=== PATIENT | female | born 1985 | race African-American/Black ===

== ENCOUNTER 2020-01-08 16:28 | Emergency (ER) | payer MEDICAID ==
[2020-01-08 16:54] VITALS: BP 128/79
--- NOTE | 2020-01-08 17:54 | ER Document Report ---
ED General - General Chief Complaint: Medical Complaint Stated Complaint: POSSIBLE MOLD EXPOSURE Time Seen by Provider: 01/08/20 17:18 Mode of Arrival: Ambulatory Information source: Patient Notes: Patient is a 34-year-old female comes emergency room accompanied by her 4 children. Mother states that she has been exposed to black mold in her house here in [place]. She states that she moved in here in August and started having symptoms as did her children in September and early October. It was soon discovered by health department that this was black mold and mother is in the fight of trying to get her money back and then to move into another place. She states that she has had some increase in her asthma symptoms as well as headaches and some nausea. 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 She does not smoke drink or do drugs. Besides the asthma she denies any other medical problems. Patient states that she has been forced to move back to [place] until such time as she can find and locate a new apartment here in town. She also states that she has solicited the help of a jewel bearing turner and trying to get her money back. And he is wondering if suggested that she see the ismael wilkins if not to bring him to ER for evaluation. TRAVEL OUTSIDE OF THE [place] IN LAST 30 DAYS: No - HPI Onset: Other - Approximately 4 months Onset/Duration: Gradual, Persistent, Worse Pain Level: 2 Associated symptoms: Body/muscle aches, Nonproductive cough, Weakness, Other - Wheezing and headache Exacerbated by: Denies Relieved by: Denies Similar symptoms previously: Yes Recently seen / treated by doctor: No - Related Data Allergies/Adverse Reactions: No Known Allergies Allergy (Unverified 01/08/20 17:29) Past Medical History - General Information source: Patient - Social History Smoking Status: Never Smoker Chew tobacco use (# tins/day): No Frequency of alcohol use: None Drug Abuse: None Lives with: Family Family History: Reviewed & Not Pertinent Pulmonary Medical History: Reports: Hx Asthma Neurological Medical History: Reports: Hx Migraine Review of Systems - Review of Systems Constitutional: No symptoms reported EENT: Nose congestion Cardiovascular: No symptoms reported Respiratory: See HPI, Cough, Wheezing Gastrointestinal: No symptoms reported Genitourinary: No symptoms reported Female Genitourinary: No symptoms reported Musculoskeletal: No symptoms reported Skin: No symptoms reported Hematologic/Lymphatic: No symptoms reported Neurological/Psychological: Headaches -: Yes All other systems reviewed and negative Physical Exam - Vital signs Vitals: Temp Pulse Resp BP Pulse Ox 98.7 F 104 H 20 128/79 H 94 01/08/20 16:44 01/08/20 16:44 01/08/20 16:44 01/08/20 16:44 01/08/20 16:44 Interpretation: Tachycardic, Hypoxic - Notes Notes: PHYSICAL EXAMINATION: GENERAL: Patient is a well-nourished well-developed obese 34-year-old female was in no apparent distress on physical exam today. HEAD: Atraumatic, normocephalic. EYES: Pupils equal round and reactive to light, extraocular movements intact, conjunctiva are normal. ENT: Examination and upper airway show nasal mucosa be mildly erythematous edematous with some rhinorrhea noted. No frontal max or sinus tenderness. Bilateral TMs normal appearance. Posterior pharynx shows mild erythema with mild drainage in the posterior pharynx. Uvula is midline with no erythema airways patent. NECK: Normal range of motion, supple without lymphadenopathy LUNGS: Auscultation patient's lungs shows bilateral breath sounds breath sounds decreased throughout faint expiratory wheeze noted on right side. No rhonchi or rales heard. HEART: Tachycardic rate without murmurs ABDOMEN: Soft, nontender, nondistended abdomen. No guarding, no rebound. No masses appreciated. Female : deferred Musculoskeletal: Normal range of motion, no pitting or edema. No cyanosis. NEUROLOGICAL: Normal speech, normal gait. Normal sensory, motor exams PSYCH: Normal mood, normal affect. SKIN: Warm, Dry, normal turgor, no rashes or lesions noted. Course - Re-evaluation Re-evalutation: 01/08/20 17:54 The other provider myself to talk to the family about needing to get out of the situation with the exposed to the black mold. The deal with the symptoms are go away is by desensitizing himself to the mole itself. At this point patient states that she is taken her kids back to [place] and then find another facility close by here in [place] without that problem. - Vital Signs Vital signs: Temp Pulse Resp BP Pulse Ox 98.7 F 104 H 20 128/79 H 94 01/08/20 17:24 01/08/20 16:44 01/08/20 16:44 01/08/20 16:44 01/08/20 16:44 Discharge - Discharge Clinical Impression: Mold suspected exposure Condition: Stable Disposition: HOME, SELF-CARE Instructions: Bronchitis With Bronchospasm (Wheezing) ([facility]), Upper Respiratory Illness ([facility]) Additional Instructions: As we discussed the only way to get an improvement on the symptoms is to get out of the area where you are exposed to the mall. If it means going back to [place] that we highly suggest you do so into you can find a safe place to bring her children back to here in [place]. There is no way I can are present tell you that black mold is causing all of the symptoms however that is very suspicious for that. You must continue to do your nebulizer treatment at least every 6 hours while awake. You need to establish with a physician here locally in [facility]. I will give you the name of the clinic that is seeing patients you may contact her office to see if they can accommodate you. Should you have any other concerns or problems he knows return to ER for reevaluation. Prescriptions: Albuterol Sulfate [Proventil 0.5% Neb 2.5 mg/0.5 ml Vial.neb] 2.5 mg NEB Q6 #30 vial.neb Forms: Elevated Blood Pressure, Return to Work Referrals: [facility] [Provider Group] - Follow up as needed
== END 2020-01-08 18:07 | disposition home or self-care (01) ==
LOC: ER 16:28
DX: Z77.120 Contact with and (suspected) exposure to mold (toxic) (principal); R51 Headache; R11.0 Nausea; M79.10 Myalgia, unspecified site; R05 Cough; R53.1 Weakness; J45.909 Unspecified asthma, uncomplicated; J34.89 Other specified disorders of nose and nasal sinuses; R00.0 Tachycardia, unspecified
CPT/HCPCS: 99282

== ENCOUNTER 2020-01-25 12:45 | Emergency (ER) | payer MEDICAID ==
[2020-01-25] MEDS ORDERED: NORMAL SALINE 1000 ML 1,000 ML IV ONE (13:32)
[2020-01-25] MEDS ORDERED: PROMETHAZINE HCL 25 MG TABLET PO ONE (13:33)
[2020-01-25] MEDS ORDERED: ACETAMINOPHEN 325 MG TABLET PO ONE (13:34)
--- NOTE | 2020-01-25 13:34 | ER Document Report ---
ED GI/ - General Chief Complaint: Headache Stated Complaint: SHORT OF BREATH,HEADACHE, Time Seen by Provider: 01/25/20 13:01 Primary Care Provider: [facility] [Provider Group] - Follow up as needed Mode of Arrival: Ambulatory Information source: Patient Notes: Patient presents complaining of vaginal discharge for the past week with lower abdominal pain off and on. Patient states that the pain migrates from the left to the right lower quadrant and occasionally to the epigastric area. Patient states pain right now is to the right lower quadrant. Patient reports nausea denies any vomiting or diarrhea. Patient denies any urinary symptoms. TRAVEL OUTSIDE OF THE [place] IN LAST 30 DAYS: No - HPI Patient complains to provider of: Abdominal pain. No: Vomiting Onset: Last week Timing/Duration: Waxing and waning Quality of pain: Sharp Pain Level: 3 Location: RLQ Vaginal bleeding (Compared to normal period): None Sexual history: Active Associated symptoms: Nausea, Vaginal discharge. denies: Fever, Urinary hesitancy, Urinary frequency, Urinary retention, Urinary urgency, Vomiting Exacerbated by: Denies Relieved by: Denies Similar symptoms previously: No Recently seen / treated by doctor: No - Related Data Allergies/Adverse Reactions: ibuprofen [From Advil] Allergy (Verified 01/25/20 15:58) iodine Allergy (Verified 01/25/20 16:05) Past Medical History - General Information source: Patient - Social History Smoking Status: Never Smoker Frequency of alcohol use: None Drug Abuse: None Occupation: none Lives with: Family Family History: Reviewed & Not Pertinent Pulmonary Medical History: Reports: Hx Asthma Neurological Medical History: Reports: Hx Migraine GI Medical History: Reports: Hx Gastroesophageal Reflux Disease Surgical Hx: Negative Review of Systems - Review of Systems Constitutional: No symptoms reported. denies: Fever EENT: No symptoms reported Cardiovascular: No symptoms reported. denies: Chest pain Respiratory: No symptoms reported. denies: Cough, Short of breath Gastrointestinal: Abdominal pain, Nausea. denies: Diarrhea, Vomiting Genitourinary: No symptoms reported. denies: Dysuria, Flank pain Female Genitourinary: No symptoms reported Musculoskeletal: No symptoms reported. denies: Back pain Skin: No symptoms reported Hematologic/Lymphatic: No symptoms reported Neurological/Psychological: No symptoms reported Physical Exam - Vital signs Vitals: Temp 99 F 01/25/20 13:30 - General General appearance: Appears well, Alert In distress: None - HEENT Head: Normocephalic, Atraumatic Eyes: Normal Conjunctiva: Normal Nasal: Normal Mouth/Lips: Normal Mucous membranes: Normal Neck: Normal, Supple. No: Lymphadenopathy - Respiratory Respiratory status: No respiratory distress Chest status: Nontender Breath sounds: Normal. No: Rales, Rhonchi, Stridor, Wheezing Chest palpation: Normal - Cardiovascular Rhythm: Regular Heart sounds: S1 appreciated, S2 appreciated Murmur: No - Abdominal Inspection: Morbidly Obese Distension: No distension Bowel sounds: Normal Tenderness: Tender - RLQ Organomegaly: No organomegaly - Genitourinary External exam: Normal Speculum exam: Cervix closed, Vaginal discharge Vaginal bleeding: None Bimanuel exam: Normal. No: Cervical motion tender, Adnexal mass, Adnexal tenderness Notes: WILLIAM Dumas as standby - Back Back: Normal, Nontender. No: CVA tenderness - Extremities General upper extremity: Normal inspection, Nontender, Normal ROM General lower extremity: Normal inspection, Nontender, Normal ROM - Neurological Neuro grossly intact: Yes Cognition: Normal Suresh Coma Scale Eye Opening: Spontaneous Peebles Coma Scale Verbal: Oriented Suresh Coma Scale Motor: Obeys Commands Suresh Coma Scale Total: 15 - Psychological Associated symptoms: Normal affect, Normal mood - Skin Skin Temperature: Warm Skin Moisture: Dry Skin Color: Normal Course - Re-evaluation Re-evalutation: 01/25/20 16:05 Patient initially denied having any allergies and and states that she is allergic to iodine. 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 Patient states that since then they did not use the soap and instead they used alcohol prep pads. Patient denies ever having received IV contrast dye. Spoke with CT staff who recommend pre-medicating prior to obtaining CT scan. 01/25/20 18:09 Patient's with vaginal discharge worrisome for BV. No significant findings otherwise on diagnostic evaluation. No concern for TOA or torsion, no concern for acute appendicitis or obstructive uropathy. Will treat symptomatically and refer to her primary doctor for follow-up at this time. Patient presents with abdominal pain without signs of peritonitis or other life-threatening or serious etiology. Patient appears stable for discharge and has been instructed to return immediately if the symptoms worsen in any way, or in 8-12 hours if not improved for reevaluation. The patient has been instructed to return if the symptoms worsen or change in any way. - Vital Signs Vital signs: Temp Pulse Resp BP Pulse Ox 99 F 01/25/20 13:30 - Laboratory Result Diagrams: 01/25/20 14:10 01/25/20 14:10 Laboratory results interpreted by me: 01/25/20 01/25/20 01/25/20 14:10 14:10 14:10 Seg Neutrophils % 39.1 L Sodium 136.7 L Urine Urobilinogen 2.0 H Labs- All tests 24 hr 01/25/20 01/25/20 01/25/20 14:10 14:10 14:10 WBC 5.0 RBC 4.67 Hgb 13.2 Hct 39.9 MCV 85 MCH 28.3 MCHC 33.2 RDW 13.3 Plt Count 338 Lymph % (Auto) 43.9 Lamb % (Auto) 11.3 Eos % (Auto) 4.8 Baso % (Auto) 0.9 Absolute Neuts (auto) 2.0 Absolute Lymphs (auto) 2.2 Absolute Monos (auto) 0.6 Absolute Eos (auto) 0.2 Absolute Basos (auto) 0.0 Seg Neutrophils % 39.1 L Sodium 136.7 L Potassium 4.6 Chloride 106 Carbon Dioxide 25 Anion Gap 6 BUN 10 Creatinine 0.69 Est GFR ( Amer) > 60 Est GFR (MDRD) Non-Af > 60 Glucose 101 Calcium 9.4 Total Bilirubin 0.4 Direct Bilirubin 0.0 Neonat Total Bilirubin Not Reportable Neonat Direct Bilirubin Not Reportable Neonat Indirect Bili Not Reportable AST 21 ALT 16 Alkaline Phosphatase 57 Total Protein 7.4 Albumin 4.2 Lipase 59.7 Serum HCG, Qual NEGATIVE Urine Color Urine Appearance Urine pH Ur Specific [place] Urine Protein Urine Glucose (UA) Urine Ketones Urine Blood Urine Nitrite Urine Bilirubin Urine Urobilinogen Ur Leukocyte Esterase Urine WBC (Auto) Urine RBC (Auto) Urine Bacteria (Auto) Squamous Epi Cells Auto Urine Mucus (Auto) Urine Ascorbic Acid Epi Cells (Wet Prep) Bacteria (Wet Prep) Trichomonas (Wet Prep) Vaginal WBC Vaginal RBC Vaginal Yeast Chlamydia DNA (PCR) N.gonorrhoeae DNA (PCR) 01/25/20 01/25/20 01/25/20 14:10 14:10 14:10 WBC RBC Hgb Hct MCV MCH MCHC RDW Plt Count Lymph % (Auto) Lamb % (Auto) Eos % (Auto) Baso % (Auto) Absolute Neuts (auto) Absolute Lymphs (auto) Absolute Monos (auto) Absolute Eos (auto) Absolute Basos (auto) Seg Neutrophils % Sodium Potassium Chloride Carbon Dioxide Anion Gap BUN Creatinine Est GFR ( Amer) Est GFR (MDRD) Non-Af Glucose Calcium Total Bilirubin Direct Bilirubin Neonat Total Bilirubin Neonat Direct Bilirubin Neonat Indirect Bili AST ALT Alkaline Phosphatase Total Protein Albumin Lipase Serum HCG, Qual Urine Color YELLOW Urine Appearance SLIGHTLY-CLOUDY Urine pH 6.0 Ur Specific [place] 1.020 Urine Protein NEGATIVE Urine Glucose (UA) NEGATIVE Urine Ketones NEGATIVE Urine Blood NEGATIVE Urine Nitrite NEGATIVE Urine Bilirubin NEGATIVE Urine Urobilinogen 2.0 H Ur Leukocyte Esterase NEGATIVE Urine WBC (Auto) 1 Urine RBC (Auto) 0 Urine Bacteria (Auto) TRACE Squamous Epi Cells Auto 3 Urine Mucus (Auto) RARE Urine Ascorbic Acid NEGATIVE Epi Cells (Wet Prep) 3+ EPITHELIALS SEEN Bacteria (Wet Prep) 4+ BACTERIA SEEN Trichomonas (Wet Prep) NO TRICHOMONAS SEEN Vaginal WBC 1+ WBCS SEEN Vaginal RBC NO RBCS SEEN Vaginal Yeast NO YEAST SEEN Chlamydia DNA (PCR) NOT DETECTED N.gonorrhoeae DNA (PCR) NOT DETECTED - Diagnostic Test Radiology reviewed: Reports reviewed Discharge - Discharge Clinical Impression: Bacterial vaginosis, Nausea Abdominal pain Qualifiers: Abdominal location: unspecified location Qualified Code(s): R10.9 - Unspecified abdominal pain Condition: Stable Disposition: HOME, SELF-CARE Instructions: Abdominal Pain ([facility]), Antinausea Medication ([facility]), Metronidazole ([facility]), Vaginosis, Bacterial ([facility]) Additional Instructions: Return immediately for any new or worsening symptoms Followup with your primary care provider, call tomorrow to make a followup a ppointment Prescriptions: Metronidazole [Flagyl 500 mg Tablet] 500 mg PO BID #14 tablet Ondansetron [Zofran Odt 4 mg Tablet] 1 tab PO Q6H #15 tab.rapdis Referrals: [facility] [Provider Group] - Follow up as needed
[2020-01-25 14:33] LABS: ABSOLUTE EOSINOPHILS # (AUTO) 0.2 10^3/uL (0.0-0.6); ABSOLUTE LYMPHOCYTES (AUTO) 2.2 10^3/uL (0.5-4.7); ABSOLUTE MONOCYTES (AUTO) 0.6 10^3/uL (0.1-1.4); BASOPHILS % (AUTO) 0.9 % (0-2); EOSINOPHILS % (AUTO) 4.8 % (0-6); HEMATOCRIT 39.9 % (36.0-47.0); HEMOGLOBIN 13.2 g/dL (12.0-15.5); LYMPHOCYTES % (AUTO) 43.9 % (13-45); MEAN CORPUSCULAR HEMOGLOBIN 28.3 pg (27.0-33.4); MEAN CORPUSCULAR HGB CONC 33.2 g/dL (32.0-36.0); MEAN CORPUSCULAR VOLUME 85 fl (80-97); MONOCYTES % (AUTO) 11.3 % (3-13); PLATELET COUNT 338 10^3/uL (150-450); RED BLOOD COUNT 4.67 10^6/uL (3.72-5.28); RED CELL DISTRIBUTION WIDTH 13.3 % (11.5-14.0); SEGMENTED NEUTROPHILS % (AUTO) 39.1 % (42-78); TOTAL CELLS COUNTED % (AUTO) 100 %
[2020-01-25 14:34] LABS: BACTERIA (WET MOUNT) 4+ BACTERIA SEEN; EPITHELIALS (WET MOUNT) 3+ EPITHELIALS SEEN; T.VAGINALIS (WET MOUNT) NO TRICHOMONAS SEEN; WBCS (WET MOUNT) 1+ WBCS SEEN; YEAST (WET MOUNT) NO YEAST SEEN
[2020-01-25 14:35] LABS: RBCS (WET MOUNT) NO RBCS SEEN
[2020-01-25 14:47] LABS: APPEARANCE,URINE SLIGHTLY-CLOUDY; BILIRUBIN,URINE NEGATIVE (NEGATIVE); COLOR,URINE YELLOW; GLUCOSE, URINE NEGATIVE (NEGATIVE); KETONES,URINE NEGATIVE (NEGATIVE); LEUKOCYTE ESTERASE,URINE NEGATIVE (NEGATIVE); NITRITE,URINE NEGATIVE (NEGATIVE); PROTEIN,URINE NEGATIVE (NEGATIVE)
[2020-01-25 14:48] LABS: ALBUMIN 4.2 g/dL (3.5-5.0); ALKALINE PHOSPHATASE 57 U/L (38-126); ANION GAP 6 (5-19); ASPARTATE AMINO TRANSFERASE 21 U/L (14-36); BILIRUBIN,TOTAL 0.4 mg/dL (0.2-1.3); BLOOD UREA NITROGEN 10 mg/dL (7-20); CALCIUM 9.4 mg/dL (8.4-10.2); CARBON DIOXIDE 25 mmol/L (22-30); CHLORIDE 106 mmol/L (98-107); GLUCOSE 101 mg/dL (75-110); POTASSIUM 4.6 mmol/L (3.6-5.0); TOTAL PROTEIN 7.4 g/dL (6.3-8.2)
[2020-01-25 15:55] LABS: CHLAM PCR NOT DETECTED (NOT DETECT)
[2020-01-25] MEDS ORDERED: METHYLPREDNISOLONE INJ 125 MG/2 ML SDV IV ONE (16:03)
[2020-01-25] MEDS ORDERED: DIPHENHYDRAMINE HCL 50 MG/ML VIAL IV ONE (16:03)
[2020-01-25] MEDS ORDERED: FAMOTIDINE INJ/PF 20 MG/2 ML SDV IV ONE (16:03)
--- NOTE | 2020-01-25 16:52 | RADIOLOGY REPORT (SQ) ---
EXAM DESCRIPTION: CT ABD/PELVIS WITH IV ONLY IMAGES COMPLETED DATE/TIME: 01/25/2020 4:36 pm REASON FOR STUDY: RLQ pain COMPARISON: None. TECHNIQUE: CT scan of the abdomen and pelvis performed using helical scanning technique with dynamic intravenous contrast injection. No oral contrast. Images reviewed with lung, soft tissue, and bone windows. Reconstructed coronal and sagittal MPR images reviewed. Delayed images for evaluation of the urinary system also acquired. All images stored on PACS. All CT scanners at this facility use dose modulation, iterative reconstruction, and/or weight based d osing when appropriate to reduce radiation dose to as low as reasonably achievable (ALARA). [facility]: Dose Right [facility]: CareDose [facility]: Dose Right [facility]: Teradose 4D [facility]: Applause CONTRAST TYPE AND DOSE: 100 mL Omnipaque 350- low osmolar. RENAL FUNCTION: BUN 10 creatinine 0.69. RADIATION DOSE: CT Rad equipment meets quality standard of care and radiation dose reduction techniq ues were employed. CTDIvol: 15.5 - 19.0 mGy. DLP: 1866 mGy-cm.. LIMITATIONS: None. FINDINGS: LOWER CHEST: No significant findings. No nodules or infiltrates. LIVER: Normal size. No masses. No dilated ducts. SPLEEN: Normal size. No focal lesions. PANCREAS: No masses. No significant calcifications. No adjacent inflammation or peripancreatic fluid collections. Pancreatic duct not dilated. GALLBLADDER: No identified stones by CT criteria. No inflammatory changes to suggest cholecystitis. ADRENAL GLANDS: No significant masses or asymmetry. RIGHT KIDNEY AND URETER: No solid masses. No significant calcifications. No hydronephrosis or hyd roureter. LEFT KIDNEY AND URETER: No solid masses. No significant calcifications. No hydronephrosis or hydr oureter. AORTA AND VESSELS: No aneurysm. No dissection. Renal arteries, SMA, celiac without stenosis. RETROPERITONEUM: No retroperitoneal adenopathy, hemorrhage or masses. BOWEL AND PERITONEAL CAVITY: No masses or inflammatory changes. No free fluid or peritoneal masses. APPENDIX: Normal. PELVIS: No mass. No free fluid. Normal bladder. ABDOMINAL WALL: No masses. No hernias. BONES: No significant or acute findings. OTHER: No other significant finding. IMPRESSION: NO SIGNIFICANT OR ACUTE FINDING IN THE ABDOMEN OR PELVIS ON CT SCAN WITH IV CONTRAST. TECHNICAL DOCUMENTATION: JOB ID: [id number] Quality ID # [id number]: Final reports with documentation of one or more dose reduction techniques (e.g., Au tomated exposure control, adjustment of the mA and/or kV according to patient size, use of iterative reconstruction technique) 2010 [employer]- All Rights Reserved Reading location - IP/workstation name: [email or web address]
--- NOTE | 2020-01-25 17:56 | RADIOLOGY REPORT (SQ) ---
EXAM DESCRIPTION: U/S NON OB PEL W/DOPPLER IMAGES COMPLETED DATE/TIME: 01/25/2020 5:39 pm REASON FOR STUDY: RLQ pain COMPARISON: None. TECHNIQUE: Dynamic and static grayscale images acquired of the pelvis via transabdominal approach an d recorded on PACS. Additional selected color Doppler and spectral images recorded. LIMITATIONS: None. FINDINGS: UTERUS: Contour normal. No mass. ENDOMETRIAL STRIPE: No focal or generalized thickening. No masses. CERVIX: No nabothian cysts. RIGHT OVARY AND DOPPLER: Normal size. No worrisome masses. Normal arterial vascular flow without evid ence for torsion. LEFT OVARY AND DOPPLER: Normal size. No worrisome masses. Normal arterial vascular flow without evide nce for torsion. FREE FLUID: None noted. OTHER: No other significant finding. MEASUREMENTS: UTERUS: 4.5 x 4.6 x 10.1 cm. ENDOMETRIAL STRIPE: 2.0 mm. RIGHT OVARY: 2.1 x 2.4 x 3.3 cm. LEFT OVARY: 1.8 x 2.4 x 3.8 cm. IMPRESSION: NORMAL PELVIC ULTRASOUND BY TRANSABDOMINAL TECHNIQUE. TECHNICAL DOCUMENTATION: JOB ID: [id number] [employer]- All Rights Reserved Rev-10/29 Reading location - IP/workstation name: [email or web address]
[2020-01-25 18:47] VITALS: BP 127/63
== END 2020-01-25 18:47 | disposition home or self-care (01) ==
LOC: ER 12:45
DX: N76.0 Acute vaginitis (principal); B96.89 Other specified bacterial agents as the cause of diseases classified elsewhere; R11.0 Nausea; R10.9 Unspecified abdominal pain; R51 Headache; R06.02 Shortness of breath; R10.30 Lower abdominal pain, unspecified; R10.31 Right lower quadrant pain; R10.13 Epigastric pain; J45.909 Unspecified asthma, uncomplicated
CPT/HCPCS: 99285; 96374; 96375; 36415; 87210; 83690; 84703; 85025; 80053; 81001; 87491; 87591; 76856; 93976; 74177; J3490 ×2; J1200; J2930; J7030; S0028